=== PATIENT | male | born 1950 | race Caucasian/White ===

== ENCOUNTER 2016-09-11 06:20 | Day surgery (SDC) | payer OTHER ==
[2016-09-09 12:15] VITALS: BMI 27.4
[2016-09-11] MEDS ORDERED: LIDOCAINE 1%-EPI 1:100,000 30 ML MDV IJ ONE (07:35)
[2016-09-11] MEDS ORDERED: BUPIVACAINE HCL/PF 0.5% (5MG/ML) 10 ML VIAL ONE ×2 (07:35→10:50)
[2016-09-11] MEDS ORDERED: PROPOFOL 20 ML ONE ×4 (07:46→10:13)
[2016-09-11] MEDS ORDERED: SUCCINYLCHOLINE CHLORIDE 200 MG/10 ML VIAL ONE (07:46)
[2016-09-11] MEDS ORDERED: LIDOCAINE HCL/PF 2% SDV 5ML VIAL ONE (07:46)
[2016-09-11] MEDS ORDERED: MIDAZOLAM HCL 2 MG/2 ML SINGLE DOSE VIAL ONE ×2 (07:47)
[2016-09-11] MEDS ORDERED: DEXAMETHASONE SOD PHOSPHATE/PF 10 MG/ML SDV ONE (10:49)
[2016-09-11 12:09] VITALS: TEMP 97.4
[2016-09-11 13:59] VITALS: BP 105/69; PULSE 62
--- NOTE | 2016-09-11 17:19 | OP ---
DATE OF OPERATION: 09/11/2016 PREOPERATIVE DIAGNOSES: 1. Painful right hallux abductovalgus deformity. 2. Painful right second hammertoe deformity. 3. Painful left second hammertoe deformity. POSTOPERATIVE DIAGNOSES 1. Painful right hallux abductovalgus deformity. 2. Painful right second hammertoe deformity. 3. Painful left second hammertoe deformity. SURGEON: Chan Thrasher MD TOWEL FOLDER: Dr. Ti Gregory ANESTHESIA: Monitored anesthesia care and local anesthesia. PROCEDURE: 1. Right Wander bunionectomy. 2. Right Henry bunionectomy. 3. Right 2nd proximal interphalangeal joint arthrodesis. 4. Right metatarsophalangeal joint release. 5. Right second extensor tendon lengthening. 6. Left second distal interphalangeal joint and distal interphalangeal joint arthrodesis. PATHOLOGY: Bone and soft tissue. ESTIMATED BLOOD LOSS: 15 mL. HEMOSTASIS: Right pneumatic ankle tourniquet at 250 mmHg for 120 minutes. MATERIALS: Partially threaded cannulated 3-0 18-mm screw x 1, [place]lock bartolome 10-mm x2, Arrow-Merrill hammertoe implant 35 mm and 45-mm, 2-0 Vicryl, 3-0 Vicryl, 5-0 nylon. INJECTIONS: Lidocaine 1% with 1:100,000 epinephrine 36 mL, and 0.5% Marcaine plain. FINDINGS AND PROCEDURE: The patient was both visually and verbally identified in the preoperative holding area. Informed consent was obtained and placed in the chart. All risks, benefits, and complications were explained to the patient to their satisfaction. The patient was then transported to the operating room by the members of the anesthesia and surgical teams. The patient was placed on the operating room table in the supine position. The patient received 2 g of Ancef for antibiotic prophylaxis. After intubation and sedation, a well-padded pneumatic right ankle tourniquet was placed. The patient was prepped and draped in the usual sterile fashion. Upon exsanguination of the right foot with an Esmarch bandage, the pneumatic right ankle tourniquet was inflated to 250 mmHg. Attention was then directed to the right foot where a linear incision extending approximately 5 cm was placed on the dorsal medial aspect of the first metatarsophalangeal joint. The incision was then carried down to the level of the capsule using blunt and sharp dissection, taking care to retract all vital neurovascular structures. A capsular incision was placed in line with the skin incision along this whole length to expose the first metatarsophalangeal joint. The periosteum was then reflected sharply off the bone using a No. 15 blade from the first metatarsal head exposing a large dorsomedial bony prominence. At this time, a sagittal saw was used to resect the bony prominence. The specimen was then taken off the field to be sent for specimen. A V-type osteotomy was then made using the sagittal saw with the apex pointed distally and the base directed proximally on the first metatarsal head. The head was then freed and translated laterally to a more correct position. Using standard AO technique, a 3-0, 18-mm, partially threaded cannulated screw was then placed across the osteotomy site dorsal proximally to plantar distal. It was then noted that the osteotomy was stable and the first metatarsal head was in a more corrected position. At this time, the medial bony prominence was resected using a sagittal saw and all rough edges were smoothed. Attention was then directed to the right first proximal phalanx where the periosteum was lifted off the bone using a [place] elevator. An Henry osteotomy was then made, using a sagittal saw with the base oriented medially and the apex oriented laterally. The proximal phalanx was then placed into a more corrected position and utilizing standard AO technique, two 10-mm Baron self-retaining bartolome were placed. The osteotomy site was then noted to be stable and in a more corrected position at this time. Attention was then directed to the right second digit where a linear incision extending from the head of the metatarsal to the proximal interphalangeal joint was made. Dissection was then carried down to expose the extensor tendon. The extensor tendon was then retracted and using a No. 15 blade, the metatarsophalangeal joint of the second digit was released. The proximal interphalangeal joint was then identified and exposed utilizing a No. 15 blade. A sagittal saw was then used to resect the cartilage off the head of the proximal phalanx and a rongeur was used to resect the cartilage off the base of the intermediate phalanx, as per ventilation worker recommendations. A 35-mm Arrow-Merrill was then placed into the proximal interphalangeal joint. It was noted that the toe was in a more corrected position at this time. The extensor tendon was noted to be taught and an extensor lengthening was performed utilizing a No. 15 blade and reapproximated with a 3-0 Vicryl. The wound sites were then flushed with copious amounts of sterile saline solution and capsular structures reapproximated with 2-0 Vicryl. The subcutaneous tissues were reapproximated utilizing 3-0 Vicryl and the skin was reapproximated utilizing 5-0 nylon. Attention was then directed to the left second digit where 2 transverse incisions were made across the proximal interphalangeal joint and the distal interphalangeal joint. Dissection was carried down to the level of the joint, taking care to retract all vital neural and vascular structures. The extensor tendons were then retracted at this time to expose the DIPJ and PIPJ. Upon exposure of the joints, a rongeur was used to resect the cartilage off the head of proximal phalanx and the base of the intermediate phalanx. A rongeur was also used to resect the cartilage off the head of the intermediate phalanx and the base of the distal phalanx, as per ventilation worker recommendations. The 45-mm Arrow-Merrill hammertoe implant was then inserted across the DIPJ and the PIPJ. It was then noted that the toe was in a more corrected position. The wounds were then flushed with copious amounts of saline and subcutaneous tissue was reapproximated utilizing 3-0 Vicryl. The skin was then reapproximated utilizing 5-0 nylon. The tourniquet was then released and a hyperemic response was noted to the left foot. Dressings for the case consisted of Xeroform, 4 x 4 gauze, ABD pads, Alea, Kerlix, and Coban. Upon extubation, the patient was then transported to the recovery room with all vital signs stable and vascular status intact to both feet. The patient will be then discharged when stabilized per anesthesia team and will follow up with Dr. Thrasher for continued care. JEWEL [id number]
--- NOTE | 2016-09-16 13:40 | PATH ---
Surgical Pathology Report Patient Name: NATY MARTINEZ Med. Rec. #: [id number] /Age/Gender: 1950 (Age: 66) / M Account: [id number] Location: [facility] Taken: 09/11/2016 Received: 09/11/2016 Reported: 09/16/2016 Physicians: Chan Thrasher M.D. Specimen(s) Received BONE AND TISSUE RIGHT FIRST METATARSAL AND LEFT SECOND METATARSAL Clinical History Bunion right foot first metatarsal Hammertoe deformity left second metatarsal Final Diagnosis BONE AND SOFT TISSUE, RIGHT FIRST AND LEFT SECOND METATARSAL, EXCISION: CARTILAGE-CAPPED BONE WITH DEGENERATIVE CHANGES OF OVERLYING CARTILAGE. Electronically Signed Kay Smith M.D. Gross Description Received in formalin, labeled "bone and soft tissue right first metatarsal and left second metatarsal," is a 3.0 x 2.3 x 0.3 cm aggregate of multiple umana, irregular portions of bone and soft tissue. Academic Vice President sections are submitted in one cassette, following decalcification. 09/11/201609/11/2016
== END 2016-09-11 14:30 | disposition home or self-care (01) ==
LOC: FASU 06:20
PROVIDERS: ATTEND Podiatrist Foot Surgery
PROC: 0QBQ0ZZ Excision of Right Toe Phalanx, Open Approach (ICD-10-PCS; principal; 2016-09-11 08:32)
PROC: 0L8V0ZZ Division of Right Foot Tendon, Open Approach (ICD-10-PCS; 2016-09-11 08:32)
DX: M20.11 Hallux valgus (acquired), right foot (principal); M20.41 Other hammer toe(s) (acquired), right foot; M20.42 Other hammer toe(s) (acquired), left foot
CPT/HCPCS: 76000-TC; 88304-TC; 94760